=== PATIENT | female | born 1965 | race Caucasian/White ===

== ENCOUNTER 2024-01-15 11:38 | Emergency (ER) | payer BC ==
[2024-01-15 12:02] LABS: BASOPHILS PERCENT AUTO 0.2 % (0.0-1.0); EOSINOPHILS PERCENT AUTO 0.9 % (1.0-3.0); HEMATOCRIT 39.9 % (37.0-47.0); HEMOGLOBIN 13.4 g/dL (12.0-16.0); LYMPHOCYTES PERCENT AUTO 8.5 % (20.5-50.1); MEAN CORPUSCULAR HEMOGLOBIN 28.8 pg (27.0-34.0); MEAN CORPUSCULAR HGB CONC 33.6 g/dL (33.0-35.0); MEAN CORPUSCULAR VOLUME 85.8 fL (80-100); MONOCYTES PERCENT AUTO 4.4 % (2-8); PLATELET COUNT,PLT 197 10^3/uL (150-450); RED BLOOD CELL COUNT 4.65 10^6/uL (4.2-5.4); WHITE BLOOD CELL COUNT,WBC 16.9 10^3/uL (5.0-10.0)
[2024-01-15 12:21] LABS: BILIRUBIN TOTAL 0.8 mg/dL (0.2-1.0); BUN/CREATININE RATIO 15.7 (No establ ref range); CALCIUM 8.9 mg/dL (8.5-10.1); CREATININE 1.08 mg/dL (0.55-1.02); EST CRCL DRUG DOSING (CG) 58.67 mL/min; PROTEIN TOTAL,TP 8.1 g/dL (6.4-8.2)
[2024-01-15 12:37] LABS: CORONAVIRUS COVID-19 NAA NEGATIVE (NEGATIVE); INFLUENZA A NAA NEGATIVE (NEGATIVE); INFLUENZA B NAA NEGATIVE (NEGATIVE); RESPIRATORY SYNCYTIAL VIR NAA NEGATIVE (NEGATIVE)
== END 2024-01-15 13:00 | disposition left against medical advice (07) ==
LOC: DL.ED 11:38
DX: R55 Syncope and collapse (principal); I10 Essential (primary) hypertension; E03.9 Hypothyroidism, unspecified; Z79.890 Hormone replacement therapy; Z79.899 Other long term (current) drug therapy
CPT/HCPCS: 0241U; 36415; 80053; 85025; 93005; 99284

== ENCOUNTER 2024-07-13 07:02 | Day surgery (SDC) | payer BC ==
[2024-07-13] MEDS: Dextrose 5%-0.45% NaCl 1,000 ML IV SCH (07:24)
[2024-07-13] MEDS ORDERED: Midazolam 1 MG/ML 2 ML SDV ONE (07:40)
[2024-07-13] MEDS ORDERED: fentaNYL 100 MCG/2 ML SDV IV ONE (07:40)
[2024-07-13] MEDS ORDERED: Midazolam 1 MG/ML 2 ML SDV IV ONE (07:40)
[2024-07-13] MEDS ORDERED: fentaNYL 100 MCG/2 ML SDV ONE (07:41)
== END 2024-07-13 09:25 | disposition home or self-care (01) ==
LOC: DL.ENDO 07:02
PROVIDERS: ATTEND Internal Medicine Gastroenterology
DX: K29.50 Unspecified chronic gastritis without bleeding (principal); F32.A Depression, unspecified; I10 Essential (primary) hypertension; E03.9 Hypothyroidism, unspecified
CPT/HCPCS: J2250; J3010; J7799